=== PATIENT | female | born 1990 | race Caucasian/White ===

== ENCOUNTER 2016-11-10 21:03 | Emergency (ER) | payer OTHER ==
[~2016-11-10] VITALS: Ht 165.1 cm; Wt 46.4 kg
[~2016-11-10 21:03] MED LIST: ACETAMINOPHEN325 M1 PO; AZITHROMYCIN250 MG PO; BACTRIM,SEPT1 TABLET PO; BENTYL10 MG PO; BENTYL20 MG PO; BUSPAR7.5 MG PO; CARAFATE100 MG/ML PO; CHROMAGEN,1 CAPSULE GT; CIPRO500 MG PO; DONNATAL1 TABLET PO; FLEXERIL10 MG PO; FLEXERIL5 MG PO; FLINTSTONES CO1 EAC1 PO; FLINTSTONES M300 MCG PO; FLINTSTONES1 EACH PO; Ferrous Fumarate PO; IBUPROFEN800 MG PO; K-DUR20 MEQ PO; KEFLEX500 MG PO; LOMOTIL TABLET1 EACH PO; LORTAB 5-325 M1 EACH PO; MACROBID100 MG PO; METOPROLOL TART25 MG PO; MOTRIN600 MG PO; MOTRIN800 MG PO; NAPROSYN250 MG PO; NAPROSYN500 MG PO; NATALCARE RX1 TABLE1 PO; NO HOME MEDS; NORCO 5/3251 TABLET PO; NORMODYNE,TRAND50 MG; Normodyne,Trandate PO; PEPCID20 MG PO; PERCOCET 5/31 TABLET PO; PHENERGAN-CODE120 ML PO; PRENATAL + DHA1 EAC1 PO; PRENATAL TABLE1 EAC3 PO; PRENATAL VITAM1 EAC1 PO; PRENATAL VITAM1 EAC3 PO; PROMETHAZINE HC25 M1 PO; PROTONIX40 MG PO; REGLAN10 MG PO; ROBITUSSIN AC,T10 ML PO; TESSALON PERLE100 MG PO; TRAMADOL HCL50 MG PO; TYLENOL REGULA325 MG PO; TYLENOL WITH C1 EACH PO; ULTRAM50 MG PO; VICODIN 5-3001 EACH PO; XANAX0.25 MG PO; ZITHROMAX Z-PA250 MG PO; ZOFRAN ODT8 MG PO; ZOFRAN4 MG PO
[2016-11-10 22:22] LABS: HEMATOCRIT 34.3 % (36.0-46.0); MCH 29.5 PG (29.0-34.0); MCHC 33.8 G/DL (30.0-36.0); MCV 87.3 FL (83-99); PLATELET COUNT 211 K/uL (156-360); RBC DIS.WIDTH-CV 12.5 % (11.8-14.6); RBC DIS.WIDTH-SD 40.5 % (39-53); RED BLOOD COUNT 3.93 M/uL (3.80-5.20); WHITE BLOOD COUNT 6.5 K/uL (4.1-10.2)
[2016-11-10 22:35] LABS: CHLORIDE 108 mEq/L (99-109); POTASSIUM 3.5 mEq/L (3.7-5.4); SODIUM 139 mEq/L (136-147)
[2016-11-10 22:37] LABS: GLUCOSE 72 mg/dL (70-99)
[2016-11-10 22:37] LABS: ADD MIUA? YES; BILIRUBIN NEGATIVE; BLOOD NEGATIVE; COLOR YELLOW ((YELLOW)); GLUCOSE (STRIP) NEGATIVE; KETONES NEGATIVE; LEUKOCYTES SMALL; NITRITE NEGATIVE; PROTEIN (STRIP) NEGATIVE; SPECIFIC GRAVITY 1.025 (1.000-1.030)
[2016-11-10 22:39] LABS: ANION GAP 9 MEQ/L (2-14); TOTAL BILIRUBIN 0.3 mg/dL (0.0-1.0)
[2016-11-10 22:41] LABS: ALKALINE PHOSPHATASE 64 IU/L (3-129); GFR ESTIMATE (CALCULATED) > 59 mL/min/
[2016-11-10 22:42] LABS: UREA NITROGEN (BUN) 17 mg/dL (9-23)
[2016-11-10 22:53] LABS: BACTERIA 1+ /HPF; EPITHELIAL CELLS 2+ /HPF; HYALINE CASTS 0-5 /LPF; MUCUS 2+ /LPF; RED BLOOD CELLS 0-5 /HPF (0-5); UCUL ADDED? NO; WHITE BLOOD CELLS 0-5 /HPF (0-5)
[2016-11-11] MEDS ORDERED: MACROBID100 MG PO (02:40)
[2016-11-11] MEDS ORDERED: REGLAN10 MG PO (02:40)
[2016-11-11 02:48] VITALS: BP 107/56
== END 2016-11-11 02:49 | disposition home or self-care (01) ==
LOC: EME 21:03
DX: O26.891 Other specified pregnancy related conditions, first trimester (principal); M54.5 Low back pain; R11.2 Nausea with vomiting, unspecified; Z3A.00 Weeks of gestation of pregnancy not specified; Z87.891 Personal history of nicotine dependence
CPT/HCPCS: 76801; 80053; 81003; 84702; 85027; 99281; 99284

== ENCOUNTER 2017-01-01 18:41 | Emergency (ER) | payer OTHER ==
[~2017-01-01] VITALS: Ht 165.1 cm; Wt 44.2 kg
[2017-01-01 21:08] LABS: HEMATOCRIT 40.2 % (36.0-46.0); MCH 30.1 PG (29.0-34.0); MCHC 34.1 G/DL (30.0-36.0); MCV 88.4 FL (83-99); MEAN PLAT.VOLUME 10.3 uM^3 (9.5-12.4); PLATELET COUNT 276 K/uL (156-360); RBC DIS.WIDTH-CV 13.5 % (11.8-14.6); RBC DIS.WIDTH-SD 43.8 % (39-53); RED BLOOD COUNT 4.55 M/uL (3.80-5.20); WHITE BLOOD COUNT 8.2 K/uL (4.1-10.2)
[2017-01-01] MEDS ORDERED: MOTRIN600 MG PO (23:10)
[2017-01-01 23:32] VITALS: BP 107/75
== END 2017-01-01 23:33 | disposition home or self-care (01) ==
LOC: EME 18:41
DX: O03.4 Incomplete spontaneous abortion without complication (principal); Z88.6 Allergy status to analgesic agent; Z87.891 Personal history of nicotine dependence
CPT/HCPCS: 81003; 84702; 85027; 99281; 99284

== ENCOUNTER 2017-03-10 15:52 | Emergency (ER) | payer OTHER ==
[~2017-03-10] VITALS: Ht 165.1 cm; Wt 47.4 kg
[2017-03-10 16:42] LABS: ADD MIUA? YES; BILIRUBIN NEGATIVE; BLOOD SMALL; COLOR STRAW ((YELLOW)); GLUCOSE (STRIP) NEGATIVE; KETONES NEGATIVE; LEUKOCYTES SMALL; NITRITE NEGATIVE; PROTEIN (STRIP) NEGATIVE; SPECIFIC GRAVITY 1.004 (1.000-1.030); UROBILINOGEN 0.2 MG/DL (0.2-1.0)
[2017-03-10 16:49] LABS: BACTERIA NONE SEEN /HPF; EPITHELIAL CELLS RARE /HPF; MUCUS NONE SEEN /LPF; RED BLOOD CELLS 0-5 /HPF (0-5)
[2017-03-10 16:58] LABS: EOSINOPHIL (%) 1.6 % (0-5); EOSINOPHIL COUNT 0.1 K/uL (0-0.3); HEMATOCRIT 36.4 % (36.0-46.0); IMMATURE GRANULOCYTE (%) 0.2 % (0.0-0.7); INSTRUMENT ABS NEUTROPHIL CT 3.8 K/uL; LYMPHOCYTE COUNT 1.7 K/uL (1.0-2.8); MCH 30.3 PG (29.0-34.0); MCHC 34.3 G/DL (30.0-36.0); MCV 88.1 FL (83-99); MEAN PLAT.VOLUME 10.8 uM^3 (9.5-12.4); MONOCYTE (%) 6.7 % (3-12); MONOCYTE COUNT 0.4 K/uL (0-0.8); NEUTROPHIL (%) 63.1 % (45-76); NEUTROPHIL COUNT 3.8 K/uL (1.8-6.4); PLATELET COUNT 229 K/uL (156-360); RBC DIS.WIDTH-CV 12.3 % (11.8-14.6); RBC DIS.WIDTH-SD 39.8 % (39-53); RED BLOOD COUNT 4.13 M/uL (3.80-5.20); WHITE BLOOD COUNT 6.1 K/uL (4.1-10.2)
[2017-03-10 17:05] LABS: CHLORIDE 106 mEq/L (99-109); POTASSIUM 3.7 mEq/L (3.7-5.4); SODIUM 139 mEq/L (136-147)
[2017-03-10 17:08] LABS: GLUCOSE 96 mg/dL (70-99)
[2017-03-10 17:09] LABS: ANION GAP 10 MEQ/L (2-14)
[2017-03-10 17:10] LABS: TOTAL BILIRUBIN 0.4 mg/dL (0.0-1.0)
[2017-03-10 17:11] LABS: ALKALINE PHOSPHATASE 77 IU/L (3-129); GFR ESTIMATE (CALCULATED) > 59 mL/min/
[2017-03-10 17:13] LABS: DIRECT BILIRUBIN 0.2 mg/dL (0.0-0.3); UREA NITROGEN (BUN) 10 mg/dL (9-23)
[2017-03-10 17:15] LABS: LIPASE 13 U/L (1.0-51.0)
[2017-03-10 17:22] LABS: QUANTITATIVE HCG < 4.0 MIU/ML
[2017-03-10] MEDS ORDERED: REGLAN10 MG PO (19:04)
[2017-03-10] MEDS ORDERED: BENTYL20 MG PO (19:04)
[2017-03-10 19:19] VITALS: BP 00/00
== END 2017-03-10 20:02 | disposition home or self-care (01) ==
LOC: RME 15:52 → EME 15:52 → RME 20:02
PROVIDERS: Physician Assistant
DX: R10.9 Unspecified abdominal pain (principal); R11.2 Nausea with vomiting, unspecified; N93.8 Other specified abnormal uterine and vaginal bleeding; F17.200 Nicotine dependence, unspecified, uncomplicated
CPT/HCPCS: 80048; 80076; 81003; 83690; 84702; 85025; 87077; 87086; 87186; 99281; 99283; J0500; J2765

== ENCOUNTER 2017-06-30 16:57 | Emergency (ER) | payer OTHER ==
[~2017-06-30] VITALS: Ht 165.1 cm; Wt 45.4 kg
[2017-06-30 17:47] LABS: APPEARANCE CLOUDY ((CLEAR)); BILIRUBIN NEGATIVE; BLOOD NEGATIVE; COLOR YELLOW ((YELLOW)); GLUCOSE (STRIP) NEGATIVE; KETONES NEGATIVE; LEUKOCYTES LARGE; NITRITE POSITIVE; PROTEIN (STRIP) NEGATIVE; SPECIFIC GRAVITY 1.016 (1.000-1.030); UROBILINOGEN 0.2 MG/DL (0.2-1.0)
[2017-06-30 18:08] LABS: BACTERIA 4+ /HPF; EPITHELIAL CELLS 4+ /HPF; MUCUS 2+ /LPF; RED BLOOD CELLS NONE SEEN /HPF (0-5); UCUL ADDED? YES; WHITE BLOOD CELLS TNTC /HPF (0-5)
[2017-06-30 19:20] LABS: HEMATOCRIT 33.4 % (36.0-46.0); HEMOGLOBIN 11.7 G/DL (11.9-15.5); MCH 30.9 PG (29.0-34.0); MCV 88.1 FL (83-99); PLATELET COUNT 200 K/uL (156-360); RBC DIS.WIDTH-CV 12.6 % (11.8-14.6); RBC DIS.WIDTH-SD 40.6 % (39-53); RED BLOOD COUNT 3.79 M/uL (3.80-5.20); WHITE BLOOD COUNT 6.5 K/uL (4.1-10.2)
[2017-06-30 19:32] LABS: ALBUMIN 3.9 g/dL (3.2-4.8); CHLORIDE 107 mEq/L (99-109); POTASSIUM 3.9 mEq/L (3.7-5.4); SODIUM 139 mEq/L (136-147)
[2017-06-30 19:34] LABS: GLUCOSE 89 mg/dL (70-99); TOTAL PROTEIN 6.5 g/dL (6.4-8.3)
[2017-06-30 19:36] LABS: TOTAL BILIRUBIN 0.6 mg/dL (0.0-1.0)
[2017-06-30 19:38] LABS: ALKALINE PHOSPHATASE 61 IU/L (3-129); CREATININE 0.7 mg/dL (0.6-1.3); GFR ESTIMATE (CALCULATED) > 59 mL/min/
[2017-06-30 19:39] LABS: UREA NITROGEN (BUN) 9 mg/dL (9-23)
[2017-06-30 19:40] LABS: AST (GOT) 15 IU/L (2-34)
[2017-06-30 19:41] LABS: ALT (GPT) 14 IU/L (3-49)
[2017-06-30 21:01] LABS: QUANTITATIVE HCG 18392.4 MIU/ML
[2017-06-30] MEDS ORDERED: KEFLEX500 MG PO (21:57)
[2017-06-30 22:17] VITALS: BP 100/70
== END 2017-06-30 22:04 | disposition home or self-care (01) ==
LOC: EME 16:57
PROVIDERS: Physician Assistant
DX: O20.0 Threatened abortion (principal); O23.11 Infections of bladder in pregnancy, first trimester; Z3A.01 Less than 8 weeks gestation of pregnancy; O99.331 Smoking (tobacco) complicating pregnancy, first trimester; F17.200 Nicotine dependence, unspecified, uncomplicated; Z88.5 Allergy status to narcotic agent
CPT/HCPCS: 76801; 80053; 81003; 84702; 84703; 85027; 87077; 87086; 87186; 99281; 99284

== ENCOUNTER 2017-10-04 10:31 | Emergency (ER) | payer OTHER ==
[~2017-10-04] VITALS: Ht 165.1 cm; Wt 49.7 kg
[2017-10-04] MEDS ORDERED: PRENATAL TABLE1 EAC3 PO (11:04)
[2017-10-04 11:10] LABS: BASOPHIL (%) 0.3 % (0-1); EOSINOPHIL (%) 0.2 % (0-5); HEMOGLOBIN 11.2 G/DL (11.9-15.5); IMMATURE GRANULOCYTE (%) 0.7 % (0.0-0.7); LYMPHOCYTE (%) 15.1 % (15-42); LYMPHOCYTE COUNT 1.4 K/uL (1.0-2.8); MCH 32.1 PG (29.0-34.0); MCV 91.7 FL (83-99); MONOCYTE (%) 6.4 % (3-12); MONOCYTE COUNT 0.6 K/uL (0-0.8); NEUTROPHIL (%) 77.3 % (45-76); NEUTROPHIL COUNT 7.2 K/uL (1.8-6.4); PLATELET COUNT 234 K/uL (156-360); RBC DIS.WIDTH-SD 50.4 % (39-53); RED BLOOD COUNT 3.49 M/uL (3.80-5.20); WHITE BLOOD COUNT 9.4 K/uL (4.1-10.2)
[2017-10-04 11:16] LABS: APPEARANCE CLEAR ((CLEAR)); BILIRUBIN NEGATIVE; BLOOD NEGATIVE; COLOR YELLOW ((YELLOW)); GLUCOSE (STRIP) NEGATIVE; KETONES NEGATIVE; LEUKOCYTES SMALL; NITRITE NEGATIVE; PROTEIN (STRIP) NEGATIVE; SPECIFIC GRAVITY 1.018 (1.000-1.030); UROBILINOGEN 0.2 MG/DL (0.2-1.0)
[2017-10-04 11:22] LABS: BACTERIA NONE SEEN /HPF; CHLORIDE 108 mEq/L (99-109); EPITHELIAL CELLS 1+ /HPF; MUCUS TRACE /LPF; POTASSIUM 3.9 mEq/L (3.7-5.4); RED BLOOD CELLS 0-5 /HPF (0-5); SODIUM 138 mEq/L (136-147); WHITE BLOOD CELLS 0-5 /HPF (0-5)
[2017-10-04 11:24] LABS: GLUCOSE 57 mg/dL (70-99)
[2017-10-04 11:28] LABS: CREATININE 0.6 mg/dL (0.6-1.3); GFR ESTIMATE (CALCULATED) > 59 mL/min/
[2017-10-04 11:29] LABS: UREA NITROGEN (BUN) 9 mg/dL (9-23)
[2017-10-04 12:15] LABS: QUANTITATIVE HCG 39433.7 MIU/ML
[2017-10-04] MEDS ORDERED: PROMETHAZINE HC25 M1 PO (13:24)
[2017-10-04 14:15] VITALS: BP 110/74
== END 2017-10-04 14:16 | disposition home or self-care (01) ==
LOC: EME 10:31
PROVIDERS: Emergency Medicine
DX: O21.9 Vomiting of pregnancy, unspecified (principal); Z3A.20 20 weeks gestation of pregnancy; O99.332 Smoking (tobacco) complicating pregnancy, second trimester; F17.200 Nicotine dependence, unspecified, uncomplicated; Z86.79 Personal history of other diseases of the circulatory system; Z88.5 Allergy status to narcotic agent; Z91.018 Allergy to other foods; Z88.8 Allergy status to other drugs, medicaments and biological substances
CPT/HCPCS: 80048; 81003; 84702; 85025; 99281; 99285; J7030; Q0169

== ENCOUNTER 2018-01-26 11:46 | Outpatient (CLI) | payer OTHER ==
[2018-01-26 12:01] VITALS: BP 111/69
[2018-01-26 13:40] VITALS: BP 98/59
[2018-01-26 15:49] LABS: AMPHETAMINE NEGATIVE (500 ng/mL); BARBITURATES NEGATIVE (200 ng/mL); BENZODIAZEPINES NEGATIVE (150 ng/mL); BUPRENORPHINE NEGATIVE (10 ng/mL); COCAINE NEGATIVE (150 ng/mL); METHADONE NEGATIVE (200 ng/mL); METHAMPHETAMINE NEGATIVE (500 ng/mL); OPIATES (MORPHINE) NEGATIVE (100 ng/mL); OXYCODONE NEGATIVE (100 ng/mL); PHENCYCLIDINE NEGATIVE (25 ng/mL); PROPOXYPHENE NEGATIVE (300 ng/mL); THC CANNABINOIDS NEGATIVE (50 ng/mL); TRICYCLIC ANTIDEPRESSANTS NEGATIVE (300 ng/mL)
== END 2018-01-26 16:50 | disposition home or self-care (01) ==
LOC: LDRP-OP 11:46 → 2WEST 11:47 → LDRP-OP 03-26 16:52
PROVIDERS: Advanced Practice Midwife
DX: O36.8130 Decreased fetal movements, third trimester, not applicable or unspecified (principal); O36.5930 Maternal care for other known or suspected poor fetal growth, third trimester, not applicable or unspecified; O98.513 Other viral diseases complicating pregnancy, third trimester; O99.343 Other mental disorders complicating pregnancy, third trimester; F32.9 Major depressive disorder, single episode, unspecified; F41.9 Anxiety disorder, unspecified; Z86.79 Personal history of other diseases of the circulatory system; Z98.890 Other specified postprocedural states; Z87.891 Personal history of nicotine dependence; Z3A.36 36 weeks gestation of pregnancy
CPT/HCPCS: 59025; 87086; G0378; J7120

== ENCOUNTER 2018-02-01 20:44 | Emergency (ER) | payer OTHER ==
[~2018-02-01] VITALS: Ht 165.1 cm; Wt 64.3 kg
[2018-02-01 23:29] VITALS: BP 116/77
== END 2018-02-01 23:29 | disposition home or self-care (01) ==
LOC: EME 20:44
DX: O26.893 Other specified pregnancy related conditions, third trimester (principal); M79.89 Other specified soft tissue disorders; M79.605 Pain in left leg; Z3A.37 37 weeks gestation of pregnancy; Z87.891 Personal history of nicotine dependence; Z88.5 Allergy status to narcotic agent; Z88.8 Allergy status to other drugs, medicaments and biological substances
CPT/HCPCS: 93971; 99281; 99283

== ENCOUNTER 2018-02-16 06:12 | Inpatient (IN) | payer OTHER ==
[2018-02-16] VITALS (38 sets, daily range): BP systolic 86–139; BP diastolic 52–78
[~2018-02-16] VITALS: Ht 165.1 cm; Wt 64.0 kg
[2018-02-16] MEDS ORDERED: ACYCLOVIR200 MG PO (07:17)
[2018-02-16 09:31] LABS: AMPHETAMINE NEGATIVE (500 ng/mL); BARBITURATES NEGATIVE (200 ng/mL); BENZODIAZEPINES NEGATIVE (150 ng/mL); BUPRENORPHINE NEGATIVE (10 ng/mL); COCAINE NEGATIVE (150 ng/mL); METHADONE NEGATIVE (200 ng/mL); METHAMPHETAMINE NEGATIVE (500 ng/mL); OPIATES (MORPHINE) NEGATIVE (100 ng/mL); OXYCODONE NEGATIVE (100 ng/mL); PHENCYCLIDINE NEGATIVE (25 ng/mL); PROPOXYPHENE NEGATIVE (300 ng/mL); THC CANNABINOIDS NEGATIVE (50 ng/mL); TRICYCLIC ANTIDEPRESSANTS NEGATIVE (300 ng/mL)
[2018-02-16 10:08] LABS: BASOPHIL (%) 0.1 % (0-1); EOSINOPHIL (%) 0 % (0-5); HEMATOCRIT 29.9 % (36.0-46.0); HEMOGLOBIN 10.1 G/DL (11.9-15.5); IMMATURE GRANULOCYTE (%) 0.7 % (0.0-0.7); LYMPHOCYTE (%) 17.4 % (15-42); LYMPHOCYTE COUNT 1.6 K/uL (1.0-2.8); MCH 30.4 PG (29.0-34.0); MCHC 33.8 G/DL (30.0-36.0); MCV 90.1 FL (83-99); MONOCYTE (%) 7.6 % (3-12); MONOCYTE COUNT 0.7 K/uL (0-0.8); NEUTROPHIL (%) 74.2 % (45-76); NEUTROPHIL COUNT 6.8 K/uL (1.8-6.4); PLATELET COUNT 154 K/uL (156-360); RBC DIS.WIDTH-CV 15.7 % (11.8-14.6); RBC DIS.WIDTH-SD 51.5 % (39-53); RED BLOOD COUNT 3.32 M/uL (3.80-5.20); WHITE BLOOD COUNT 9.2 K/uL (4.1-10.2)
[2018-02-16 20:40] LABS: COMMENTS - BLOOD GASES VENOUS; PCO2 36 mm Hg (35-45); SITE CORD BLOOD; pH 7.39 (7.35-7.45)
[2018-02-16 20:41] LABS: BASE EXCESS -2.6 mEq/L (-3 to +3); BICARBONATE 21.8 mEq/L (22-26); CARBOXY HGB 1.4 % (0-5); METHEMOGLOBIN 1.3 % (0-1.5); PO2 30 mm Hg (80-100)
[2018-02-17] VITALS (11 sets, daily range): BP systolic 94–148; BP diastolic 50–105
[2018-02-17 06:56] LABS: BASOPHIL (%) 0.1 % (0-1); EOSINOPHIL (%) 0.1 % (0-5); HEMATOCRIT 21.7 % (36.0-46.0); IMMATURE GRANULOCYTE (%) 0.4 % (0.0-0.7); LYMPHOCYTE (%) 11.5 % (15-42); LYMPHOCYTE COUNT 1.1 K/uL (1.0-2.8); MCH 30.5 PG (29.0-34.0); MCHC 33.6 G/DL (30.0-36.0); MCV 90.8 FL (83-99); MONOCYTE (%) 7.7 % (3-12); MONOCYTE COUNT 0.7 K/uL (0-0.8); NEUTROPHIL (%) 80.2 % (45-76); NEUTROPHIL COUNT 7.5 K/uL (1.8-6.4); PLATELET COUNT 122 K/uL (156-360); RBC DIS.WIDTH-CV 15.9 % (11.8-14.6); RBC DIS.WIDTH-SD 52.9 % (39-53); WHITE BLOOD COUNT 9.3 K/uL (4.1-10.2)
[2018-02-17 06:59] LABS: HEMOGLOBIN 7.3 G/DL (11.9-15.5); RED BLOOD COUNT 2.39 M/uL (3.80-5.20)
[2018-02-18] VITALS (15 sets, daily range): BP systolic 98–133; BP diastolic 54–78
[2018-02-18 09:15] LABS: HEMATOCRIT 21.8 % (36.0-46.0); HEMOGLOBIN 7.1 G/DL (11.9-15.5); MCH 30.2 PG (29.0-34.0); MCHC 32.6 G/DL (30.0-36.0); MCV 92.8 FL (83-99); NRBC (%) 0.3 /100 WBC (0-0); PLATELET COUNT 144 K/uL (156-360); RBC DIS.WIDTH-SD 53.4 % (39-53); RED BLOOD COUNT 2.35 M/uL (3.80-5.20); WHITE BLOOD COUNT 9.4 K/uL (4.1-10.2)
[2018-02-19 06:20] LABS: HEMATOCRIT 27.6 % (36.0-46.0); MCH 30.4 PG (29.0-34.0); MCHC 33.3 G/DL (30.0-36.0); MCV 91.1 FL (83-99); NRBC (%) 0.4 /100 WBC (0-0); PLATELET COUNT 169 K/uL (156-360); RBC DIS.WIDTH-CV 15.8 % (11.8-14.6); RBC DIS.WIDTH-SD 51.2 % (39-53); WHITE BLOOD COUNT 9.5 K/uL (4.1-10.2)
[2018-02-19 06:23] LABS: HEMOGLOBIN 9.2 G/DL (11.9-15.5); RED BLOOD COUNT 3.03 M/uL (3.80-5.20)
[2018-02-19] MEDS ORDERED: DOCUSATE SODIU100 MG PO (09:43)
[2018-02-19] MEDS ORDERED: FERROUS SULFAT325 MG PO (09:44)
[2018-02-19] MEDS ORDERED: MOTRIN600 MG PO (09:44)
[2018-02-19] MEDS ORDERED: ENDOCET 5-3251 EACH PO (09:44)
[2018-02-19] MEDS ORDERED: BREAST PUMP MC (09:46)
== END 2018-02-19 14:59 | disposition home or self-care (01) | DRG 765 ==
LOC: LDRP-OP 06:12 → 2WEST 06:13 → LDRP-OP 12:08 → 2WEST 20:17 → LDRP-OP 03-26 17:08
PROVIDERS: Advanced Practice Midwife; Obstetrics & Gynecology
PROC: 10D00Z1 Extraction of Products of Conception, Low, Open Approach (ICD-10-PCS; principal; 2018-02-16)
PROC: 10907ZC Drainage of Amniotic Fluid, Therapeutic from Products of Conception, Via Natural or Artificial Opening (ICD-10-PCS; 2018-02-16)
PROC: 3E033VJ Introduction of Other Hormone into Peripheral Vein, Percutaneous Approach (ICD-10-PCS; 2018-02-16)
PROC: 3E0P7VZ Introduction of Hormone into Female Reproductive, Via Natural or Artificial Opening (ICD-10-PCS; 2018-02-16)
PROC: 10907ZC Drainage of Amniotic Fluid, Therapeutic from Products of Conception, Via Natural or Artificial Opening (ICD-10-PCS; 2018-02-16)
PROC: 3E0S3BZ Introduction of Anesthetic Agent into Epidural Space, Percutaneous Approach (ICD-10-PCS; 2018-02-16)
PROC: 00HU33Z Insertion of Infusion Device into Spinal Canal, Percutaneous Approach (ICD-10-PCS; 2018-02-16)
PROC: 30233N1 Transfusion of Nonautologous Red Blood Cells into Peripheral Vein, Percutaneous Approach (ICD-10-PCS; 2018-02-18)
DX: O36.5931 Maternal care for other known or suspected poor fetal growth, third trimester, fetus 1 (principal); D62 Acute posthemorrhagic anemia; O98.32 Other infections with a predominantly sexual mode of transmission complicating childbirth; F33.9 Major depressive disorder, recurrent, unspecified; O99.12 Other diseases of the blood and blood-forming organs and certain disorders involving the immune mechanism complicating childbirth; O98.52 Other viral diseases complicating childbirth; O99.344 Other mental disorders complicating childbirth; Z37.0 Single live birth; Z3A.39 39 weeks gestation of pregnancy; O99.334 Smoking (tobacco) complicating childbirth; O99.02 Anemia complicating childbirth; D50.9 Iron deficiency anemia, unspecified; F17.210 Nicotine dependence, cigarettes, uncomplicated; A60.00 Herpesviral infection of urogenital system, unspecified; O69.0XX1 Labor and delivery complicated by prolapse of cord, fetus 1; O32.2XX1 Maternal care for transverse and oblique lie, fetus 1; O32.6XX1 Maternal care for compound presentation, fetus 1; B00.9 Herpesviral infection, unspecified; O34.211 Maternal care for low transverse scar from previous cesarean delivery; O12.04 Gestational edema, complicating childbirth; D69.6 Thrombocytopenia, unspecified; O61.0 Failed medical induction of labor; M54.5 Low back pain; O26.893 Other specified pregnancy related conditions, third trimester
CPT/HCPCS: 36600; 74018; 85025; 85027; 86850; 86900; 86901; 86920; 88307; C1726; C1755; J0330; J0595; J0690; J1050; J1200; J1885; J2274; J2405; J3010; J7120; P9016; Q0169